=== PATIENT | female | born 1970 | race Caucasian/White ===

== ENCOUNTER 2016-05-21 19:01 | Emergency (ER) | payer MEDICAID, OTHER ==
[~2016-05-21] VITALS: Ht 180.3 cm; Wt 111.1 kg
[2016-05-21 20:05] LABS: Basophils # (auto) 0.1 uL; Basophils % (auto) 0.7 % (0.0-2.0); Eosinophils # (auto) 0.3 uL; Eosinophils % (auto) 2.5 % (0.0-7.0); Hematocrit 40.3 % (36.0-46.0); Lymphocytes # (auto) 2.6 uL; Lymphocytes % (auto) 23.1 % (10.0-50.0); Mean Corpuscular Hemoglobin 27.6 pg (28.0-32.0); Mean Corpuscular Hgb Conc. 32.3 g/dL (32.0-36.0); Mean Corpuscular Volume 85.3 fL (80.0-100.0); Monocytes # (auto) 0.7 uL; Neutrophils # (auto) 7.7 uL; Neutrophils % (auto) 67.7 % (37.0-80.0); Platelet Count (auto) 279 10^3/uL (140-450); Red Cell Distribution Width 14.7 % (11.6-16.0); White Blood Cell 11.3 10^3/uL (4.4-10.8)
[2016-05-21 20:30] LABS: Albumin 3.7 g/dL (3.4-5.0); Calcium 8.7 mg/dL (8.5-10.1); Potassium 3.6 mmol/L (3.5-5.1)
[2016-05-21 20:49] LABS: BUN/Creatinine Ratio 8.9; Bilirubin, Total 0.5 mg/dL (0.2-1.0); Total Protein 7.2 g/dL (6.4-8.2)
[2016-05-22 02:37] VITALS: BP 129/88
== END 2016-05-22 06:04 | disposition left against medical advice (07) ==
LOC: ER 19:04
DX: M79.89 Other specified soft tissue disorders (principal); Z53.21 Procedure and treatment not carried out due to patient leaving prior to being seen by health care provider
CPT/HCPCS: 36415; 80053; 85025; 85379

== ENCOUNTER 2018-08-02 18:25 | Emergency (ER) | payer MEDICAID ==
[~2018-08-02] VITALS: Ht 177.8 cm; Wt 131.5 kg
[2018-08-02 20:45] VITALS: BP 145/100
[2018-08-02] MEDS ORDERED: ACETAMINOPHEN/CODEINE#3 (300/30mg) TAB PO ONE (20:45)
[2018-08-02] MEDS ORDERED: BACLOFEN 10 MG TAB PO ONE (20:45)
[2018-08-02] MEDS ORDERED: DexAMETHasone SOD PHOS 10MG/1ML VIAL INJ IM ONE (20:45)
== END 2018-08-02 21:03 | disposition home or self-care (01) ==
LOC: ER 18:29
DX: M62.838 Other muscle spasm (principal); Z76.0 Encounter for issue of repeat prescription; Z88.0 Allergy status to penicillin; W10.8XXD Fall (on) (from) other stairs and steps, subsequent encounter
CPT/HCPCS: 96372; 99283; J1100

== ENCOUNTER 2018-08-09 06:19 | Emergency (ER) | payer MEDICAID ==
[~2018-08-09] VITALS: Ht 177.8 cm; Wt 90.7 kg
[2018-08-09 07:29] VITALS: BP 143/88
[2018-08-09] MEDS ORDERED: KETOROLAC TROMETH 60MG/2ML VIAL IM ONE (07:45)
== END 2018-08-09 08:18 | disposition home or self-care (01) ==
LOC: ER 06:19
DX: S16.1XXD Strain of muscle, fascia and tendon at neck level, subsequent encounter (principal); S76.012D Strain of muscle, fascia and tendon of left hip, subsequent encounter; S46.912D Strain of unspecified muscle, fascia and tendon at shoulder and upper arm level, left arm, subsequent encounter; W18.39XD Other fall on same level, subsequent encounter; I10 Essential (primary) hypertension; Z88.0 Allergy status to penicillin
CPT/HCPCS: 72040; 96372; 99283; J1885